=== PATIENT | male | born 1955 | race African-American/Black ===

== ENCOUNTER 2020-02-22 21:05 | Emergency (ER) | payer OTHER ==
[~2020-02-22] VITALS: Ht 185.4 cm; Wt 90.7 kg
[2020-02-22 21:08] VITALS: BP 128/95
--- NOTE | 2020-02-22 21:09 | NUR ---
ED Nurse Note: brought in by jacqueline Salinas from [facility] c/o middle back pain since am. pt states 8/10 pain. ems reports negative trauma or falls. vss, nad, aaox4, ambulatory with assistance, on telemetry monitor.
--- NOTE | 2020-02-22 21:34 | Emergency Room Report ---
History of Present Illness General Chief Complaint: Back Pain-No Injury Source: Patient, Medical Record, EMS Present Illness HPI This 64-year-old male with a history of diabetes and CVA. He is a correction patient. He presents with complaint abdominal pain and body pain. Onset last night. He said he has some mild epigastric pain but has some more pain he had vomiting today. No fever chills but no dysuria frequency. Decreased appetite. Has generalized back pain and shoulder pain from his previous surgery. Pain is 7 out of 10. Worse with movement. Better with rest. No other injury. 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 Patient History Past Medical History: see triage record, old chart reviewed, DM, HTN, COPD, CVA/TIA Past Surgical History: other Pertinent Family History: none Social History: Denies: smoking Immunizations: other Reviewed Nursing Documentation: PMH: Agreed; PSxH: Agreed Nursing Documentation-PMH Hx COPD: Yes Hx Diabetes: Yes - DM2 Review of Systems Eye: Denies: eye pain, blurred vision ENT: Denies: ear pain, nose congestion, throat swelling Respiratory: Denies: cough, shortness of breath Cardiovascular: Denies: chest pain, palpitations Gastrointestinal: Reports: abdominal pain, nausea, vomiting; Denies: diarrhea Musculoskeletal: Reports: back pain, muscle stiffness; Denies: joint pain Skin: Denies: rash Neurological: Denies: headache, numbness Endocrine: Denies: increased thirst, increased urine Hematologic/Lymphatic: Denies: easy bruising All Other Systems: negative except mentioned in HPI Physical Exam Vital Signs Date Time Temp Pulse Resp B/P (MAP) Pulse Ox O2 Delivery O2 Flow Rate FiO2 02/22/20 21:02 98.4 120 19 155/105 (122) 98 Room Air Vitals with tachycardia Sp02 EP Interpretation: reviewed, normal General Appearance: no apparent distress, alert, Chronically Ill Head: normocephalic, atraumatic Eyes: bilateral eye PERRL, bilateral eye EOMI ENT: hearing grossly normal, normal pharynx Neck: full range of motion, supple, no meningismus Respiratory: chest non-tender, lungs clear, normal breath sounds Cardiovascular #1: regular rate, rhythm, no murmur Gastrointestinal: normal bowel sounds, no mass, no organomegaly, no bruit, non- distended, tenderness - Epigastric Musculoskeletal: back normal, normal range of motion, gait/station normal Psychiatric: mood/affect normal Medical Decision Making Diagnostic Impression: Primary Impression: Abdominal pain Qualified Codes: R10.84 - Generalized abdominal pain Additional Impressions: Constipation Qualified Codes: K59.00 - Constipation, unspecified Back pain Qualified Codes: M54.9 - Dorsalgia, unspecified ER Course This patient presents with abdominal pain. No evidence of an acute abdomen. No obstruction. He does have constipation. He has generalized back pain and neck pain which is chronic in nature. No evidence of any cauda equina syndrome. No spinal epidural abscess or neoplastic process. Will discharge back to correction. CT/MRI/US Diagnostic Results CT/MRI/US Diagnostic Results : Imaging Test Ordered: CT abdomen pelvis Impression Read by radiologist. Constipation. Otherwise negative. Last Vital Signs Date Time Temp Pulse Resp B/P (MAP) Pulse Ox O2 Delivery O2 Flow Rate FiO2 02/22/20 21:08 98.1 112 19 128/95 98 Room Air Status: improved Disposition: SNF Condition: Stable Scripts Lactulose (LACTULOSE*) 20 Gm/30 Ml Solution 30 ML ORAL DAILY, #240 ML 0 Refills Prov: Dain Heni MD 02/22/20 Additional Instructions: Follow-up with your doctor in 7 days. Return if worse. Dain Hein MD Feb 22, 2020 21:34
[2020-02-22] MEDS ORDERED: Morphine Sulfate 4mg/ml Inj (IV USE ONLY) IVP ONE (21:45)
--- NOTE | 2020-02-22 22:00 | NUR ---
ED Nurse Note: blood collected and sent to lab
[2020-02-22 22:05] LABS: BASOPHILS % (AUTO) 0.5 % (0.0-2.0); EOSINOPHILS % (AUTO) 1.4 % (0.0-3.0); HEMATOCRIT 39.4 % (42.0-52.0); HEMOGLOBIN 12.8 G/DL (14.2-18.0); LYMPHOCYTES % (AUTO) 17.9 % (20.0-45.0); MEAN CORPUSCULAR VOLUME 85 FL (80-99); MONOCYTES % (AUTO) 5.7 % (1.0-10.0); NEUTROPHILS % (AUTO) 74.6 % (45.0-75.0); PLATELET COUNT 322 K/UL (150-450); RED BLOOD COUNT 4.65 M/UL (4.70-6.10); RED CELL DISTRIBUTION WIDTH 13.2 % (11.6-14.8); WHITE BLOOD COUNT 6.3 K/UL (4.8-10.8)
--- NOTE | 2020-02-22 22:05 | NUR ---
ED Nurse Note: covid swab collected and sent to lab
--- NOTE | 2020-02-22 22:07 | NUR ---
ED Nurse Note: pt went to ct
--- NOTE | 2020-02-22 22:10 | NUR ---
ED Nurse Note: unable to obtain urine at this time. will attempt at a later time
[2020-02-22 22:20] LABS: ALANINE AMINOTRANSFERASE 24 U/L (12-78); ALBUMIN 3.2 G/DL (3.4-5.0); ALBUMIN/GLOBULIN RATIO 0.8 (1.0-2.7); ALKALINE PHOSPHATASE 89 U/L (46-116); ASPARTATE AMINO TRANSFERASE 13 U/L (15-37); BILIRUBIN,TOTAL 0.3 MG/DL (0.2-1.0); BLOOD UREA NITROGEN 18 mg/dL (7-18); CALCIUM 8.7 MG/DL (8.5-10.1); CARBON DIOXIDE 24 MMOL/L (21-32)
--- NOTE | 2020-02-22 22:20 | NUR ---
ED Nurse Note: pt back from ct
--- NOTE | 2020-02-22 22:21 | Diagnostic Imaging Report ---
EXAM: CT Abdomen and Pelvis Without Intravenous Contrast CLINICAL HISTORY: ABD PAIN TECHNIQUE: Axial computed tomography images of the abdomen and pelvis without intravenous contrast. CTDI is 5.2 mGy and DLP is 284.0 mGy-cm. One or more of the following dose reduction techniques were used: automated exposure control, adjustment of the mA and/or kV according to patient size, use of iterative reconstruction technique. COMPARISON: No relevant prior studies available. FINDINGS: Lung bases: No significant abnormality. ABDOMEN: Liver: No significant abnormality. Gallbladder and bile ducts: No significant abnormality. No calcified stones. Pancreas: No significant abnormality. Spleen: No significant abnormality. Adrenals: No significant abnormality. Kidneys and ureters: Left renal cortical scar. No obstructing ureteral calculi or hydronephrosis. Stomach and bowel: Moderate colonic stool. PELVIS: Appendix: No findings to suggest acute appendicitis. Bladder: No significant abnormality. No calcified stones. Reproductive: Unremarkable as visualized. ABDOMEN and PELVIS: Intraperitoneal space: No significant abnormality. No free air. Bones/joints: Remote appearing left rib fractures. Soft tissues: Small fat-containing periumbilical and inguinal hernias. Vasculature: Aortic atherosclerosis. No abdominal aortic aneurysm. Lymph nodes: No significant abnormality. IMPRESSION: Constipation.
[2020-02-22 22:30] LABS: CHLORIDE 103 MMOL/L (98-107); POTASSIUM 4.2 MMOL/L (3.5-5.1); SODIUM 139 MMOL/L (136-145)
[2020-02-22] MEDS ORDERED: LACTULOSE20 GM/301 ORAL (22:45)
--- NOTE | 2020-02-22 23:09 | NUR ---
ED Nurse Note: gave report to Marni from [facility] of patient returning
[2020-02-22 23:10] VITALS: BP 125/89
--- NOTE | 2020-02-22 23:10 | NUR ---
ER DISCHARGE NOTE: Patient is cleared to be discharged per [facility]MD via [facility] via gurney back to [facility], report given to Marni NORRIS, pt is aox4, on room air, with stable vital signs. pt was given dc and prescription instructions, pt was able to verbalize understanding, pt id band and iv site removed without complications.
== END 2020-02-22 23:10 ==
LOC: EDBD 21:05 → EMR 21:53
DX: R10.84 Generalized abdominal pain (principal); K59.00 Constipation, unspecified; R11.2 Nausea with vomiting, unspecified; Z20.828 Contact with and (suspected) exposure to other viral communicable diseases; M54.9 Dorsalgia, unspecified; E11.9 Type 2 diabetes mellitus without complications; I10 Essential (primary) hypertension; J44.9 Chronic obstructive pulmonary disease, unspecified; Z86.73 Personal history of transient ischemic attack (TIA), and cerebral infarction without residual deficits
CPT/HCPCS: 36415; 74176; 80053; 83690; 84484; 85025; 96361; 96374; 96375; J2270; J2405; J7030; U0002; Z7502; 99284